=== PATIENT | male | born 1965 | race Caucasian/White ===

== ENCOUNTER 2017-12-12 14:44 | Emergency (ER) | payer MEDICAID ==
[~2017-12-12] VITALS: Ht 167.6 cm; Wt 91.6 kg
[2017-12-12 14:51] VITALS: BP 135/87
--- NOTE | 2017-12-12 15:01 | NUR ---
PATIENT TO BED 2 AT THIS TIME.
--- NOTE | 2017-12-12 15:01 | NUR ---
gave report to Margi ROSE
[2017-12-12] MEDS ORDERED: MORPHINE SULFATE 2 MG/ML SYR IVP ONE (15:15)
[2017-12-12] MEDS ORDERED: KETOROLAC 30 MG/ML VIAL IVP ONE (15:15)
--- NOTE | 2017-12-12 15:20 | NUR ---
PT. TAKEN BY RADIOLOGY BY TECH
--- NOTE | 2017-12-12 15:28 | NUR ---
Matt vela in ED - 12/12/17 at 1612 by PRASAD PT. TAKEN TO CT BY TECH.
--- NOTE | 2017-12-12 15:30 | NUR ---
PT. CAME INTO THE ED DUE TO L SIDED CHEST PAIN X 3 DAYS S/P FALL. PT.STATES " I WAS WALKING AND I TRIPPED AND I FELL AND WHEN I LANDED I HIT MY CHEST AND EVER THEN IT HAS BEEN HURTING". PT. AAOX4, DENIES N/V/D, DENIES SOB, PT. COMPLAINS OF CHEST PAIN 7/10 THAT IS SHARP AND CONSTANT AND NON RADIATING X 3 DAYS. . Pain worse upon inspiration. Symmetrical chest movement upon inhalation and expiration. No creptius or fail chest noted.No eccmychosis or trauma noted. ER MD NOTIFIED. WILL CONTINUE TO MONITOR. FAMILY MEMBERS AT BEDSIDE.
[2017-12-12 16:17] LABS: BASOPHILS % (AUTO) 0.6 % (0.0-2.0); EOSINOPHILS # (AUTO) 0.4 K/uL (0-0.4); EOSINOPHILS % (AUTO) 5.7 % (0.0-4.0); HEMATOCRIT 41.6 % (36-52); HEMOGLOBIN 14.8 g/dL (12.0-18.0); LYMPHOCYTES % (AUTO) 27.6 % (20.5-51.1); MEAN CORPUSCULAR HEMOGLOBIN 31 pg (27-31); MEAN CORPUSCULAR HGB CONC 36 g/dL (33-37); MEAN CORPUSCULAR VOLUME 87.9 fL (80-94); MONOCYTES # (AUTO) 0.5 K/uL (0.8-1.0); MONOCYTES % (AUTO) 6.2 % (1.7-9.3); NEUTROPHILS # (AUTO) 4.4 K/uL (1.8-7.7); NEUTROPHILS % (AUTO) 59.9 % (42.2-75.2); PLATELET COUNT (AUTO) 141 K/uL (140-450); RED BLOOD CELL COUNT(AUTO) 4.73 MIL/uL (4.20-6.10); RED CELL DISTRIBUTION WIDTH 13.2 % (11.6-13.7); WHITE BLOOD COUNT (AUTO) 7.3 K/uL (4.8-10.8)
[2017-12-12 16:26] LABS: ANION GAP 14.7 (8-16); CARBON DIOXIDE 24.1 mmol/L (21-32); CREATININE 0.9 mg/dL (0.7-1.3); POTASSIUM 3.8 mmol/L (3.5-5.1)
[2017-12-12 16:33] LABS: ALBUMIN 3.6 g/dL (3.4-5.0); TOTAL BILIRUBIN 0.3 mg/dL (0.0-1.0)
--- NOTE | 2017-12-12 16:33 | NUR ---
PT. IN BED RESTING COMFORTABLY, RR EVEN AND UNLABORED. SAFETY PRECAUTIONS IN PLACE. WILL CONTINUE TO MONITOR.
[2017-12-12 17:14] VITALS: BP 135/95
--- NOTE | 2017-12-12 17:14 | NUR ---
Patient discharged with v/s stable. Written and verbal after care instructions given and explained. Patient alert, oriented and verbalized understanding of instructions. Ambulatory with to car. All questions addressed prior to discharge. ID band removed. Patient advised to follow up with PMD. Rx of VOLTAREN given. Patient educated on indication of medication including possible reaction and side effects. Opportunity to ask questions provided and answered.
== END 2017-12-12 17:14 | disposition home or self-care (01) ==
LOC: MED 14:44
DX: G89.11 Acute pain due to trauma (principal); R07.89 Other chest pain; Z91.81 History of falling
CPT/HCPCS: 36415; 71045; 71250; 74176; 80053; 83880; 84484; 85025; 85610; 85730; 93005; 96374; 96375; 99285; J1885; J2270

== ENCOUNTER 2021-06-29 15:04 | Emergency (ER) | payer MEDICAID, OTHER ==
[~2021-06-29] VITALS: Ht 170.2 cm; Wt 87.1 kg
[2021-06-29 16:01] VITALS: BP 163/95
[2021-06-29] MEDS ORDERED: LIDOCAINE 2% 1000 MG/50 ML VIAL INJ ONE (18:25)
--- NOTE | 2021-06-29 19:15 | NUR ---
55/M BIB SELF FOR LEFT HAND LACERATION. STATES HE WAS USING A METAL WIRE AND CUT HIMSELF. BLEEDING CONTROLLED AT THIS TIME. DENIES NUMBNESS OR TINGLING
--- NOTE | 2021-06-29 20:39 | NUR ---
PT CALLED AT 2028 NO ANSWER
--- NOTE | 2021-06-29 20:50 | NUR ---
PT CLEARED FOR DISCHARGE. PT CANT BE FOUND IN LOBBY OR OUTSIDE. PT LEFT FACILTY WITH NO DISCHARGE INSTRUCTIONS.
== END 2021-06-29 20:50 | disposition home or self-care (01) ==
LOC: MED 15:04
DX: S61.412A Laceration without foreign body of left hand, initial encounter (principal); X58.XXXA Exposure to other specified factors, initial encounter; Y93.89 Activity, other specified; Y92.89 Other specified places as the place of occurrence of the external cause; Y99.8 Other external cause status
CPT/HCPCS: 12001; 99282; J2001